=== PATIENT | male | born 1940 | race Caucasian/White ===

== ENCOUNTER → 2019-04-11 14:30 | Outpatient (CLI) | payer MEDICARE, SELFPAY ==
--- NOTE | 2019-04-11 14:37 | CA_ITS ---
PROCEDURE: 2-D M-mode and color Doppler study INDICATIONS FOR THE TEST: Chest pain COPD Heart Murmur Tobacco Smoking Palpitations Fatigue Syncope Edema HypertensionXDiabetes Mellitus Rheumatic Fever SOB BOLAND ObesityXHyperlipidemia Family History HD Additional History PVC'S, PATIENT INFORMATION HEIGHT: 66 WEIGHT:222 GENDER: Male B/P:118/76 2-D/M-MODE INTERPRETATION: 2-D MEASUREMENTS OBSERVED VALUES IN CMS Right Ventricular Dimension (RVDd) 2.9 Interventricular Septum (Thickness)(IVsd) 1.4 Left Ventricular Internal Dimensions(LVIDd) 5.7 Left Ventricular Posterior Wall (Thickness)(LVPWd) 1.4 Aortic Root 3.4 Aortic Cusp Separation Left Atrial Dimensions (LAD) 3.6 2D 1. Technically very difficult study because of the patient's factor and poor acoustic windows, endocardial surfaces are poorly visualized, a repeat study with Definity contrast is recommended. 2. Mildly enlarged left atrium, normal left ventricular size, mild concentric left ventricular hypertrophy, visually estimated ejection fraction probably 55%, endocardial surfaces are very poorly visualized, repeat study with Definity contrast is recommended. 3. The right atrium and right ventricle are mildly enlarged with normal contractility. 4. The aortic valve is minimally thickened and fibrosed. Leaflet continue to display good mobility. 5. The pulmonic valve is poorly visualized. 6. No significant pericardial effusion noted. DOPPLER INTERROGATION: Doppler interrogation of the aortic, mitral and tricuspid valvular presence of mild mitral and tricuspid regurgitation, tricuspid regurgitation jet velocity is inadequate for calculation of the right ventricular systolic pressure, diastolic parameters are inconclusive. CONCLUSION: 1. Technically difficult study because of the patient's factor and poor acoustic windows, repeat study with Definity contrast is recommended. 2. Mildly enlarged left atrium, normal left ventricular size, visually estimated ejection fraction 55%, endocardial surface of poorly visualized, a repeat study with definitely contrast is recommended. Diastolic parameters are inconclusive. 3. Mild mitral and tricuspid regurgitation 4. No significant pericardial effusion noted.
== END ==
PROVIDERS: PCP Nurse Practitioner; Visit Provider Urology
DX: I25.10 Atherosclerotic heart disease of native coronary artery without angina pectoris (principal)
CPT/HCPCS: 93306

== ENCOUNTER → 2019-09-01 12:30 | Outpatient (CLI) | payer MEDICARE, SELFPAY ==
--- NOTE | 2019-09-01 12:34 | CA_ITS ---
APPROVED REPORT EXAM: Limited 2D Echocardiogram with contrast Senior Mainframe Programmer Analyst: Syeda Mccabe RVT Ht: 5 ft 7 in Wt: 223lbs BSA: 2.12 BP: 148/64 mmHg Indications: Shortness of Breath R06.02, Hypertension I10,COPD,CAD,GERD Echo Enhancing Agent Indication: Endocardial border delineation Agent(s) / Amount(s) Used: Definity 2 cc Left Ventricle Left atrium is mildly enlarged, left ventricle is normal size, there is mild concentric left ventricular hypertrophy, despite Definity contrast endocardial borders were poorly defined, visually estimated ejection fraction approximately 45%, there appears to be moderate hypokinesis involving the inferior basal and basal septal wall. Right Ventricle Right atrium and right ventricular mildly enlarged with normal contractility. Aortic Valve Aortic valve is minimally thickened and fibrosed. Mitral Valve Mitral valve leaflets are minimally thickened. Tricuspid Valve Tricuspid valve is grossly normal. Pulmonic Valve Pulmonic valve is poorly visualized. Great Vessels Aortic root is normal size. Pericardium No significant pericardial effusion noted. Conclusion 1. Limited definitely contrast study was performed, despite the use of the contrast endocardial borders are poorly enhanced. 2. Normal left ventricular size, mild concentric left ventricular hypertrophy, visually estimated ejection fraction approximately 45% with segmental wall motion abnormalities as described above. 3. No significant pericardial effusion noted. Electronically signed by : Leighton Armas, 09/02/2019 06:36:17
== END ==
PROVIDERS: PCP Nurse Practitioner; Visit Provider Urology
DX: I25.10 Atherosclerotic heart disease of native coronary artery without angina pectoris (principal); I10 Essential (primary) hypertension; E78.5 Hyperlipidemia, unspecified; I51.7 Cardiomegaly
CPT/HCPCS: 93308; Q9957

== ENCOUNTER → 2023-05-15 11:36 | Outpatient (CLI) | payer MEDICARE, SELFPAY ==
[2023-05-15 12:10] LABS: Basophils % 0.4 % (0.1-2.0); Eosinophils # 0.1 K/mm3 (0.0-0.4); Eosinophils % 2.1 % (0.1-12.0); Hemoglobin 16.3 g/dL (14.1-18.0); Lymphocytes # 1.5 K/mm3 (0.7-4.5); Lymphocytes % 25.8 % (10-50); Mean Corpuscular HGB Conc 32.6 g/dL (31.8-35.4); Mean Corpuscular Hemoglobin 29.7 pg (27.0-31.2); Mean Corpuscular Volume 90.9 fl (80-94); Mean Platelet Volume 7.5 fl (7.4-10.4); Monocytes # 0.6 K/mm3 (0.1-1.0); Neutrophils # 3.4 K/mm3 (1.8-7.8); Neutrophils % 60.8 % (37.0-80.0); Platelet Count 213 K/mm3 (142-424); Red Blood Count 5.49 M/mm3 (4.60-6.20); Red Cell Distribution Width 13.8 % (11.5-17.5); White Blood Count 5.6 K/mm3 (4.8-10.8)
[2023-05-15 12:17] LABS: Alanine Aminotransferase 22 U/L (12-78); Alkaline Phosphatase 50 U/L (38-126); Anion Gap 14.3 mEq/L (5-15); Aspartate Amino Transferase 25 U/L (17-59); Bilirubin,Indirect 0.8 mg/dL (0.0-0.9); Bilirubin,Total 0.8 mg/dl (0.2-1.3); Bilirubin,Unconjugated 0.9 mg/dL (0.0-1.1); Blood Urea Nitrogen 15 mg/dl (9-20); Calcium 9.7 mg/dl (8.4-10.2); Carbon Dioxide 27 mmol/L (22.0-30.0); Chloride 101 mmol/L (98-107); Chol/HDL Ratio 3.9 (1-3.5); Cholesterol 185 mg/dl (140-200); Estimated Glomerular Filt Rate 81 ml/min (>60); GFR (African American) 98 ML/MIN (>60); Glucose 99 mg/dl (74-100); HDL Cholesterol 48 mg/dl (40-60); Magnesium 2.1 mg/dl (1.6-2.3); Potassium 4.3 mmoL/L (3.5-5.1); Sodium 138 mmol/L (136-145); Total Protein,Serum 6.6 g/dl (6.3-8.2); Triglycerides 119 mg/dl (30-150); VLDL Cholesterol 24 mg/dL (0-40)
[2023-05-15 12:28] LABS: Direct LDL Cholesterol 102.85 mg/dL (100-129)
[2023-05-15 12:47] LABS: Thyroid Stimulating Hormone 1.29 uIU/mL (0.465-4.68)
== END ==
PROVIDERS: PCP Nurse Practitioner Family; Visit Provider Internal Medicine
DX: I10 Essential (primary) hypertension; I20.8 Other forms of angina pectoris; I49.1 Atrial premature depolarization; I49.3 Ventricular premature depolarization; J43.8 Other emphysema; R94.31 Abnormal electrocardiogram [ECG] [EKG]; E78.49 Other hyperlipidemia
CPT/HCPCS: 36415; 80048; 80061; 80076; 83735; 84439; 84443; 85025

== ENCOUNTER → 2023-05-15 11:53 | Outpatient (CLI) | payer MEDICARE, SELFPAY ==
--- NOTE | 2023-05-15 11:53 | NM_ITS ---
APPROVED REPORT Exam: Nuclear Stress Test Indication: CAD, 1 STENT, HTN, SOB Patient Location: Outpatient Stress Tech: Alicia Cárdenas NM Tech:Josie HaroCADENCE olvera RT (R)(N)(M) Ht: 5 ft 7 in Wt: 207 lbs HR: 58 bpm BP: 174/66 mmHg BSA: 2.05 m2 Rhythm: NSR TID: 1.02 BMI: 32.4 History: CAD, 1 STENT, HTN, SOB Procedure: Patient received 0.4 mg of intravenous Lexiscan, resting heart rate 58 bpm, resting blood pressure 174/66 mmHg, with Lexiscan maximum heart rate achieved was 73 bpm which is 53 % of the maximum predicted heart rate and blood pressure was 142/67 mmHg. With Lexiscan, patient denied any complaint of chest pain. Cardiac Stress and Resting SPECT Images: Cardiac Stress and Resting SPECT images were obtained using technetium 99m Myoview 31.5 mCi stress and 10.19 mCi at rest. Patient was unable to lie flat, and therefore prone stress imaging could not be performed. This may affect the diagnostic interpretation of the study findings. Resting and stress imaging in supine position demonstrate a large sized, moderate, fixed perfusion defect in the entire inferior and inferior lateral LV wall, as well as the inferoapical region. Findings are suggestive of infarct with no reversible ischemia. Gated imaging demonstrates moderate reduction in LV systolic function. There is moderate to severe hypokinesis in the inferior, inferolateral, and apical LV singh. LVEF is calculated at 36%. Conclusion: Patient was unable to lie flat, and therefore prone stress imaging could not be performed. This may affect the diagnostic interpretation of the study findings. Large sized, moderate, fixed perfusion defect in the entire inferior and inferior lateral LV wall, as well as the inferoapical region. Findings are suggestive of infarct with no reversible ischemia. Gated imaging demonstrates moderate reduction in LV systolic function. There is moderate to severe hypokinesis in the inferior, inferolateral, and apical LV singh. LVEF is calculated at 36%. Electronically signed by : Jessica Verde, 05/16/2023 01:07:40
--- NOTE | 2023-05-15 11:53 | CA_ITS ---
APPROVED REPORT Exam: Pharmacologic Technologist: Alicia Cárdenas, Ht: 5 ft 7 in Wt: 209 lbs BSA: 2.06 m2 HR: 58 bpm BP: 174/66 mmHg Rhythm: NSR, PACs, PVCs Medical History Medical History: HTN, Hyperlipidemia Medications: Lisinopril,,,,, SyMBICORT,,,,, Allergies: [id number] REDUCTOSE INHIBITOR Cardiac Risk Factors: HTN, Hyperlipidemia, Smoking Stress Test Details Test: LEXISCAN HR Resting HR: 59 bpm Max Heart Rate (APMHR): 137 bpm Max HR Achieved: 79 bpm Target HR (85% APMHR): 116 bpm % of APMHR: 58 Recovery HR: 63 bpm BP Resting BP: 174/66 mmHg Max BP: 177/87 mmHg Recovery BP: 164.0/73.0 mmHg ECG Resting ECG: NSR, PVC, PAC Stress ECG: No change Arrhythmia: PACs, PVCS, 1 couplet was noted Recovery ECG: No change Recovery Arrhythmia: PACs, PVCs Clinical Exercise duration: 04:03 min Highest Stage Achieved: Exercise capacity: n/a METs Stress ECG Conclusion PT HAD DYSPNEA, DIZZINESS AND NAUSEA PVC/PAC WERE PRESENT AT BASELINE, DURING STRESS, AND AT RECOVERY. THERE WAS 1 VENTRICULAR COUPLE PRESENT DURING STRESS. NO SIGNIFICANT ST CHANGES WITH STRESS UNREMARKABLE LEXISCAN ECG STRESS TEST. MYOVIEW IMAGES ARE REPORTED SEPARATELY. Test Summary REST 02:47 . . 59 . 174/ 66 . . Stage 1 . . . . . . . Myoview Injected Stage 1 01:00 . . 66 . . . . Stage 2 01:00 . . 72 . 142/ 67 . . Stage 3 01:00 . . 69 . . . . Stage 4 01:00 . . 68 . 156/ 72 . . Stage 4 01:03 . . 68 . 156/ 72 . Stop exercise at 04:03 RECOVERY 01:00 . . 67 . 158/ 88 . . RECOVERY 02:00 . . 68 . 152/ 90 . . RECOVERY 03:00 . . 69 . 152/ 90 . . RECOVERY 04:00 . . 59 . 177/ 87 . . RECOVERY 05:00 . . 61 . 156/112 . . RECOVERY 06:00 . . 70 . 156/112 . . RECOVERY 07:00 . . 66 . 164/ 73 . . RECOVERY 07:01 . . . . Electronically signed by : Jessica Verde, 05/16/2023 01:01:06
== END ==
PROVIDERS: PCP Nurse Practitioner Family; Visit Provider Internal Medicine
DX: I10 Essential (primary) hypertension; I20.8 Other forms of angina pectoris; I49.1 Atrial premature depolarization; I49.3 Ventricular premature depolarization; J43.8 Other emphysema; R94.31 Abnormal electrocardiogram [ECG] [EKG]; E78.49 Other hyperlipidemia
CPT/HCPCS: 36415; 78452; 80048; 80061; 80076; 83735; 84439; 84443; 85025; 93017; 93306; A9502; J2785